=== PATIENT | male | born 1965 | race Caucasian/White ===

== ENCOUNTER 2018-12-14 12:02 | Emergency (ER) | payer OTHER ==
[~2018-12-14] VITALS: Ht 177.8 cm; Wt 122.5 kg
--- NOTE | 2018-12-14 12:15 | NUR ---
PT BIB SELF C/O OF BACK PAIN 08/24 x 5 DAYS, -INJURY, PT IS AAOX4, NOT IN RESPIRATORY DISTRESS, KEPT RESTED AND COMFORTABLE.
--- NOTE | 2018-12-14 12:17 | NUR ---
SEEN AND EXAMINED BY DR. MANNING.
[2018-12-14] MEDS ORDERED: HYDROMORPHONE INJ 0.5 MG/0.5 ML SYRINGE IV ONE ×2 (12:30→13:30)
[2018-12-14] MEDS ORDERED: ONDANSETRON HCL/PF 4 MG/2 ML VIAL ONE (12:30)
[2018-12-14] MEDS ORDERED: ONDANSETRON HCL/PF - ER 4 MG/2 ML VIAL IV ONE (12:30)
[2018-12-14] MEDS ORDERED: HYDROMORPHONE 1 MG/1 ML DISP.SYRIN ONE ×2 (12:31→13:08)
[2018-12-14 13:05] VITALS: BP 165/94
--- NOTE | 2018-12-14 13:44 | NUR ---
IV removed. Catheter intact and site benign. Pressure and 4x4 applied to site. No bleeding noted. Patient discharged to home in stable condition. Written and verbal after care instructions given. Patient verbalizes understanding of instruction.
== END 2018-12-14 13:45 | disposition home or self-care (01) ==
LOC: ER 12:06
DX: M54.5 Low back pain (principal); M79.662 Pain in left lower leg; I10 Essential (primary) hypertension; E11.9 Type 2 diabetes mellitus without complications
CPT/HCPCS: 96374; 96375; 96376; 99283; A4606; J1170 ×2; J2405; Z7610